=== PATIENT | female | born 1980 | race Caucasian/White ===

== ENCOUNTER 2016-12-13 17:24 | Emergency (ER) | payer MEDICARE, OTHER ==
[2017-02-08] MEDS ORDERED: LAMICTAL25 MG PO (07:42)
[2017-02-08] MEDS ORDERED: KLONOPIN TAB 00.5 MG PO (07:43)
[2017-02-08] MEDS ORDERED: LAMICTAL100 MG PO (07:43)
[2017-02-08] MEDS ORDERED: THORAZINE 100100 MG PO (07:44)
[2017-02-08] MEDS ORDERED: NICOTINE PATCH1 EAC2 TD (07:44)
[2017-02-10] MEDS ORDERED: TYLENOL 325MG325 MG PO (10:39)
[2017-02-10] MEDS ORDERED: CEFDINIR300 MG PO (10:39)
== END 2016-12-13 20:03 | disposition left against medical advice (07) ==
LOC: ER1 17:24
DX: Z53.21 Procedure and treatment not carried out due to patient leaving prior to being seen by health care provider (principal)
CPT/HCPCS: 93005

== ENCOUNTER 2016-12-21 22:53 | Emergency (ER) | payer MEDICARE, OTHER ==
[2017-02-08] MEDS ORDERED: LAMICTAL25 MG PO (07:42)
[2017-02-08] MEDS ORDERED: LAMICTAL100 MG PO (07:43)
[2017-02-08] MEDS ORDERED: KLONOPIN TAB 00.5 MG PO (07:43)
[2017-02-08] MEDS ORDERED: THORAZINE 100100 MG PO (07:44)
[2017-02-08] MEDS ORDERED: NICOTINE PATCH1 EAC2 TD (07:44)
[2017-02-10] MEDS ORDERED: TYLENOL 325MG325 MG PO (10:39)
[2017-02-10] MEDS ORDERED: CEFDINIR300 MG PO (10:39)
== END 2016-12-22 01:06 | disposition left against medical advice (07) ==
LOC: ER1 22:53
DX: Z53.21 Procedure and treatment not carried out due to patient leaving prior to being seen by health care provider (principal)
CPT/HCPCS: 93005